=== PATIENT | female | born 1970 | race Caucasian/White ===

== ENCOUNTER 2023-12-25 17:45 | Emergency (ER) | payer OTHER, SELFPAY ==
--- NOTE | ~2023-12-25 | CT_ITS ---
EXAMINATION: CT HEAD WITHOUT CONTRAST CLINICAL INFORMATION: Headache. COMPARISON: None available. TECHNIQUE: Contiguous axial imaging was performed from the skull base to vertex without intravenous administration of contrast. Multiplanar reformatted images are submitted. This CT examination was performed using dose optimization techniques as appropriate, variously including the following: *Automated exposure control *Adjustment of mA and/or kV according to patient size (this includes techniques or standardized protocols for targeted exams where dose is matched to indication/reason for exam; i.e. extremities or head) *Use of iterative reconstruction technique DLP: 619 mGy-cm FINDINGS: There is no acute intracranial hemorrhage or evidence of territorial infarction. No abnormal mass effect or midline shift is seen. Conde to white matter differentiation is well preserved. There is no abnormal attenuation within the brain parenchyma. The ventricles are normal in size. No extra-axial fluid collections are identified. The calvarium and scalp soft tissues are normal. The middle ear cavity and mastoid air cells are clear. The visualized paranasal sinuses are clear. CT/CT head/brain wo IV con IMPRESSION: No acute intracranial pathology.
[2023-12-25 17:57] VITALS: BP 149/70; PULSE 75; RESP 18; TEMP 36.7; O2SAT 100; BMI 28.1
--- NOTE | 2023-12-25 17:58 | ED_ITS ---
HPI - General Adult General Chief complaint: Neck Pain/Injury Stated complaint: pain in neck/base of skull, numb forehead Time Seen by Provider: 12/25/23 21:07 History of Present Illness ED Provider: Gaby ARIAS narrative: The patient is a 53-year-old woman who comes to the emergency room for evaluation of neck pain and headache pain. The patient says she has been having problems for about 2 weeks. She says that her symptoms began more at the top of the back of her neck than in the head. She says the pain then seemed to move up into the occipital region of the head. Over the last 2 weeks she has also developed a sense of numbness on her forehead and a sense of fogginess in her brain. She says that before the symptoms began she had spent some time lying on the ground with a water bottle under her neck. She can not think of anything else she might have done that might have provoked any of the symptoms. She denies any lifting or straining or other events that could have provoked it. No fever, sweats, chills. No sore throat. No neck stiffness. The patient has a apparently had 2 ER visits for this syndrome in the last 2 weeks. She says that over a week ago she went to [facility] and had a CT scan. Apparently the CT scan of the head showed some finding for which they wanted to get an MRI but the patient says she is claustrophobic and they could not do an MRI. She then followed up with her regular doctor and arranged physical therapy for her neck. A few days ago she was at her doctor's office and her systolic blood pressure was 180. Her doctor called an ambulance and she was brought to the emergency room at [facility]. She apparently had a 14 hour stay in the emergency room. She says she was treated symptomatically in the emergency room at [facility] at that time but did not have any diagnostic studies done. The patient is frustrated that the symptoms have persisted for 2 weeks without a specific diagnosis. Related Data Allergies Allergy/AdvReac Type Severity Reaction Status Date / Time Iodinated Contrast Media Allergy Anaphylaxis Verified 12/25/23 18:02 [IV Contrast Dye] Review of Systems 2 Review of Systems: Yes all other systems are reviewed and are negative [facility] Social History Social History Advance Directives: No Advance Directives Information Provided: No Do you have a plan to hurt others: No Plan Physical Exam ED Vital Signs: Vital Signs - 24 hr 12/25/23 17:57 12/25/23 20:28 12/25/23 23:57 Temperature 98.1 F 98.5 F 98.2 F Pulse Rate 75 61 66 Respiratory Rate 18 16 16 Blood Pressure 149/70 H 138/73 128/68 Pulse Oximetry 100 98 98 Oxygen Delivery Method Room Air Room Air Room Air BMI result Body Mass Index 28.1 Const Other: The patient is awake and alert and does not appear in any distress. HENMT Other: Face is symmetrical. Mucous membranes moist. The posterior pharynx is normal. Tympanic membranes are normal bilaterally. She has some occipital tenderness. No soft tissue swelling in the scalp. Eyes General: appearance normal, both eyes and all related structures Alignment and Position: alignment normal Eyelids: Yes eyelids normal Conjunctivae: conjunctivae normal Pupils: Equal, round and reactive pupils present EOM: EOMs intact bilaterally Neck Other: There is some bilateral paraspinous upper C-spine tenderness. The patient can touch her chin to her chest easily. There are no masses in the neck either anteriorly or posteriorly. Resp Effort & Inspection: normal respiratory effort Auscultation: clear to auscultation bilaterally Cardio Rate: regular rate Rhythm: regular rhythm Heart sounds: S1 normal heart sound present and S2 normal heart sound present Skin Other: Skin is dry and unremarkable. No rash or redness. Neuro Other: The patient is awake and alert with a normal mental status. Eye movements are intact. Pupillary responses are normal. Face is symmetrical. Speech is clear. Strength is 5/5 and symmetrical. No pronator drift. Finger-nose is normal. Heel-gallagher is normal. She seems entirely neurologically intact. Cranial nerves: Yes Equal, round and reactive pupils present Extrem Other: No peripheral edema. No calf swelling or tenderness. No asymmetry. Course Course Course Narrative: RME performed by Katia Pedroza PA-C. Patient is a 53 year old assigned female at presenting to the emergency department with pain at the base of her head and the superior aspect of her neck. Detailed physical exam and review of systems are deferred to the educational speech language clinician. Labs and swabs ordered. Patient placed back in the waiting room pending room availability and results. Medications Administered Discontinued Medications Generic Name Dose Route Start Last Admin Trade Name Freq PRN Reason Stop Dose Admin Acetaminophen 975 mg 12/25/23 21:21 12/25/23 21:36 Acetaminophen 325 Mg Tablet PO 12/25/23 21:22 975 mg ONCE ONE Administration Ketorolac Tromethamine 30 mg 12/25/23 21:21 12/25/23 21:37 Ketorolac Tromethamine 30 Mg/Ml Vial IM 12/25/23 21:22 30 mg ONCE ONE Administration Medical Decision Making Medical Decision Making [facility] Narrative: The patient is a 53-year-old woman who presents for evaluation of a headache. She has had the headache for about 2 weeks. She has a negative head CT today. The CT today additionally does not show any signs of sinusitis. She had labs today that were unremarkable including a normal white count and differential and a normal C-reactive protein and ESR. She has a supple neck and a normal neurological exam. I do not see any indication for additional imaging or investigations. I think that her pain is most likely primarily a tension type muscular pain of the upper neck and the occipital scalp. She is advised to continue the physical therapy that was prescribed for this headache by her PCP and to follow up with her PCP Lab Data 12/25/23 18:09 12/25/23 18:09 Labs: Lab Results 12/25/23 Range/Units 18:09 WBC 9.7 (4.8-10.8) X10*3/uL RBC 4.80 (4.20-5.50) X10*6/uL Hgb 13.7 (12.0-16.0) g/dl Hct 41.1 (37.0-47.0) % MCV 85.6 (80.0-98.0) fL MCH 28.5 (27.0-33.0) pg MCHC 33.3 (31.0-35.0) g/dl RDW 14.7 (11.0-16.0) % Plt Count 324 (160-400) X10*3/uL MPV 9.9 (9.4-12.3) fL Immature Gran % (Auto) 0.2 (0.0-0.4) % Neut % (Auto) 58.6 (45-73) % Lymph % (Auto) 31.2 (20-40) % Haywood % (Auto) 6.7 (2-11) % Eos % (Auto) 2.9 (0-4) % Baso % (Auto) 0.4 (0-2) % Lymph # (Auto) 3.0 (1.2-4.9) X10*3/uL Haywood # (Auto) 0.7 (0.1-1.2) X10*3/uL Eos # (Auto) 0.3 (0.0-0.4) X10*3/uL Baso # (Auto) 0.0 (0.0-0.2) X10*3/uL Abs Immat Gran (auto) 0.02 (0.00-0.03) X10*3/uL Absolute Neuts (auto) 5.7 (2.0-8.3) x10*3/uL Absolute Nucleated RBC 0.000 (0.0-0.012) X10*3/uL Nucleated RBC % (auto) 0.0 (0.0-0.2) /100WBC ESR 4 (0-20) MM/HR Sodium 142 (135-145) mmol/L Potassium 3.8 (3.3-5.1) mmol/L Chloride 107 (96-108) mmol/L Carbon Dioxide 26 (22-29) mmol/L Anion Gap 13 (12-20) BUN 21 H (9-16) mg/dL Creatinine 0.88 (0.5-1.4) mg/dL Estim Creat Clear Calc 71.1 Estimated GFR > 60 Random Glucose 116 H (60-115) mg/dL Calcium 9.7 (8.4-10.2) mg/dL Magnesium 1.9 (1.6-2.6) mg/dL Total Bilirubin 0.3 (0.0-1.0) mg/dL AST 19 (5-31) U/L ALT 30 (0-31) U/L Alkaline Phosphatase 87 (39-117) U/L C-Reactive Protein 0.14 (< or = 0.50) mg/dL Total Protein 7.3 (6.5-8.0) g/dL Albumin 4.2 (3.5-5.0) g/dL Influenza Type A (PCR) NEGATIVE (Negative) Influenza Type B (PCR) NEGATIVE (Negative) RSV RNA Qual (PCR) NEGATIVE (Negative) SARS-CoV-2 RNA (RT-PCR) NEGATIVE (Negative) Discharge Plan Discharge Clinical Impression: Headache, Acute neck pain Patient Disposition: Home, Self-Care Additional Instructions: Your testing in the emergency room today is very reassuring. Your CT scan does not show any acute problems. Your blood work is also very reassuring. I think the primary issue is a problem with the muscles in the back of your neck and in the back of your scalp. Neck muscle problems can be very bothersome. Please continue the physical therapy you have been starting. Follow up soon with your regular doctor for further evaluation. Return to the emergency room if significantly worse. Referrals: Reina Lala MD [Primary Care Provider] - (Headache, neck pain) Interventions: ED Discharge Assessment Last Done: 12/25/23 23:57 Discharge Date/Time: 12/25/23 23:58 Print Language: Welsh
[2023-12-25 18:16] LABS: MANUAL DIFF FLAG NO
[2023-12-25 18:21] LABS: Basophils Percent Auto 0.4 % (0-2); Eosinophils Absolute Auto 0.3 X10*3/uL (0.0-0.4); Eosinophils Percent Auto 2.9 % (0-4); Hematocrit 41.1 % (37.0-47.0); Hemoglobin 13.7 g/dl (12.0-16.0); Imm Gran Abs Auto 0.02 X10*3/uL (0.00-0.03); Imm Gran Pct Auto 0.2 % (0.0-0.4); Lymphocytes Percent Auto 31.2 % (20-40); Mean Corpuscular HGB Conc 33.3 g/dl (31.0-35.0); Mean Corpuscular Hemoglobin 28.5 pg (27.0-33.0); Mean Corpuscular Volume 85.6 fL (80.0-98.0); Mean Platelet Volume 9.9 fL (9.4-12.3); Monocytes Absolute Auto 0.7 X10*3/uL (0.1-1.2); Monocytes Percent Auto 6.7 % (2-11); Neutrophils Absolute Auto 5.7 x10*3/uL (2.0-8.3); Neutrophils Percent Auto 58.6 % (45-73); Platelet Count 324 X10*3/uL (160-400); Red Cell Distribution Width 14.7 % (11.0-16.0); White Blood Count 9.7 X10*3/uL (4.8-10.8)
[2023-12-25 18:32] LABS: Alanine Aminotransferase 30 U/L (0-31); Albumin Level 4.2 g/dL (3.5-5.0); Alkaline Phosphatase 87 U/L (39-117); Anion Gap 13 (12-20); Aspartate Amino Transferase 19 U/L (5-31); Bilirubin Total 0.3 mg/dL (0.0-1.0); Blood Urea Nitrogen 21 mg/dL (9-16); C Reactive Protein 0.14 mg/dL (< or = 0.50); Calcium 9.7 mg/dL (8.4-10.2); Carbon Dioxide 26 mmol/L (22-29); Chloride 107 mmol/L (96-108); Creatinine Clr Calc Pharmacy 71.1; Estimated Glomerular Filt Rate > 60; Glucose Random 116 mg/dL (60-115); Magnesium 1.9 mg/dL (1.6-2.6); Potassium 3.8 mmol/L (3.3-5.1); Sodium 142 mmol/L (135-145); Total Protein 7.3 g/dL (6.5-8.0)
[2023-12-25 18:56] LABS: Influenza A PCR NEGATIVE (Negative); Influenza B PCR NEGATIVE (Negative); Resp Syncy Virus RNA Qual PCR NEGATIVE (Negative); SARS COV2 PCR INHOUSE NEGATIVE (Negative)
[2023-12-25 20:28] VITALS: BP 138/73; PULSE 61; RESP 16; TEMP 36.9; O2SAT 98
[2023-12-25 21:23] LABS: Erythrocyte Sedimentation Rate 4 MM/HR (0-20)
[2023-12-25] MEDS: Acetaminophen 325 MG TABLET 975 MG PO (21:36)
[2023-12-25] MEDS: Ketorolac Tromethamine 30 MG/ML VIAL IM (21:37)
[2023-12-25 23:57] VITALS: BP 128/68; PULSE 66; RESP 16; TEMP 36.8; O2SAT 98
== END 2023-12-25 23:58 | disposition home or self-care (01) ==
PROVIDERS: Physician Assistant Medical; Emergency Provider Emergency Medicine; PCP Internal Medicine
DX: M54.2 Cervicalgia (principal); R51.9 Headache, unspecified; Z03.818 Encounter for observation for suspected exposure to other biological agents ruled out
CPT/HCPCS: 0241U; 70450; 80053; 83735; 85025; 85652; 86140; 96372; 99283; 99284; J1885